=== PATIENT | male | born 1945 | race African-American/Black ===

== ENCOUNTER → 2017-05-25 | Day surgery (SDC) | payer MEDICARE, OTHER ==
[~2017-05-25] MED LIST: CELE200C PO; HYDROmorphone 2 MG/ML VIAL IV PRN; IV RINGERS,LACTATED 1000ML 1,000 ML IV SCH; LIDOCAINE 1% PF 2 ML VIAL. ID PRN; LIDOCAINE 2% PF Vial for OR 5 ML VIAL. ONE; LOSA1TAB2 PO; METF500T4 PO; MORPHINE SULFATE 2 MG/ML DISP.SYRIN. IV PRN; ONDANSETRON PF 4 MG/2 ML VIAL. IV PRN; PROCHLORPERAZINE 10 MG/2 ML VIAL. IV PRN; PROPOFOL 40 ML IV ONE; SITA100T PO; fentaNYL PF VIAL 100 MCG/2 ML VIAL IV PRN
[2017-05-25 10:18] VITALS: BP 133/85
--- NOTE | 2017-05-25 11:27 | CONS ---
DATE OF CONSULTATION: 05/25/2017 REFERRING PHYSICIAN: Dr. Miguel Coleman. HISTORY OF PRESENT ILLNESS: A 71-year-old -[place] male with past medical history significant for prostate cancer, colon polyps, hypertension, diabetes, seen for interval colonoscopy. Last exam was approximately 5 years ago. The patient did have some bleeding several years back, history of suppositories with resolution. Here today for surveillance exam. No change in bowel habits. No change in weight or appetite. PAST MEDICAL HISTORY: Osteoarthrosis, hypertension, diabetes, history of colonic polyps, history of prostate cancer. ALLERGIES: None. MEDICATIONS INCLUDE: Celebrex 200 mg daily, Hyzaar 50 mg daily, metformin 500 mg daily and Januvia 100 mg daily. SOCIAL HISTORY: He is a nonsmoker, nondrinker. FAMILY HISTORY: Significant for heart disease and lung cancer. REVIEW OF SYSTEMS: Per records. PAST SURGICAL HISTORY: Status post back surgery, hernia repair, lumbar disk surgery, radial keratotomy and TURP. PHYSICAL EXAMINATION: GENERAL: Reveals a well-nourished, well-developed male. VITAL SIGNS: Temperature is 98.5, pulse 65, respirations 18. HEENT: Normocephalic and atraumatic head. Pupils and extraocular movements are not tested. Sclerae anicteric. NECK: Supple. LUNGS: Clear. CARDIOVASCULAR: Reveals an S1, S2 without S3, S4 or appreciable murmur. ABDOMEN: Soft abdomen, normal bowel sounds, without appreciable hepatosplenomegaly. EXTREMITIES: Reveals no cyanosis, clubbing or edema. IMPRESSION: History of colonic polyps. Surveillance exam is recommended at this time. Risks, benefits of procedure including risk of perforation have been discussed. The patient is willing to proceed. Thank you Dr. Coleman for allowing us to consult and participate in the patient's care. ALEXANDRE EUGENE MD DR: DEBORAH/anastasiya JOB#: [id number] / [id number]
--- NOTE | 2017-05-28 15:13 | PATHOLOGY ---
PATHOLOGY REPORT * * * * * * * * FINAL DIAGNOSIS: Rectal polypectomy: - Polypoid segment of rectal mucosa showing focal dropout of rectal glands, edema and fibrosis of lamina propria, crypt architectural distortion, and mild acute and chronic inflammation. (JPM:charlie; 05/28/2017) COMMENT: Sections of the rectal polypectomy reveal a polypoid segment of rectal mucosa showing focal dropout of colonic glands, edema and fibrosis of lamina propria, crypt architectural distortion, and mild acute and chronic inflammation. The findings are suggestive of previous mucosal injury, perhaps a result of prolapse, ischemia, or prior radiation. There is no evidence of an active chronic destructive colitis/proctitis. There are no adenomatous changes. There is no evidence of dysplasia or malignancy. (JPM:charlie; 05/28/2017) REPORT ELECTRONICALLY SIGNED BY: Errol Hidalgo M.D. DATE/TIME: 05/28/2017 15:12 * * * * * * * * GROSS PATHOLOGY: Received in formalin labeled "Scottie Martinez, rectal polypectomy," is a 0.6 x 0.4 x 0.5 cm polypoid piece of chu soft tissue. The margin is inked and the tissue is sectioned perpendicular to the margin and submitted in its entirety in cassette A1. (TSD; 05/25/2017) INITIAL CPT CODE(S): A; 40564 Professional services performed [place] [address] Technical services performed by [facility] at [address] [place] [address]. SPECIMEN(S) RECEIVED: A.Rectal polypectomy CLINICAL HISTORY: History polyps; polyp PATIENT: SCOTTIE MARTINEZ /AGE: 310/29/1945 (Age: 71) PATIENT #: [id number] ALT CASE #: SPECIMEN COLLECTION DATE: 05/25/2017 SPECIMEN RECEIVED DATE: 05/25/2017 [facility] [place] [address] - PHONE: [phone] * * * END OF REPORT * * *
== END | disposition home or self-care (01) ==
LOC: ENDOS 08:50
PROVIDERS: ATTEND Internal Medicine Gastroenterology
DX: K62.1 Rectal polyp (principal); K64.0 First degree hemorrhoids; I10 Essential (primary) hypertension; K21.9 Gastro-esophageal reflux disease without esophagitis; M19.91 Primary osteoarthritis, unspecified site; E11.9 Type 2 diabetes mellitus without complications; Z86.39 Personal history of other endocrine, nutritional and metabolic disease; Z86.69 Personal history of other diseases of the nervous system and sense organs; Z87.39 Personal history of other diseases of the musculoskeletal system and connective tissue
CPT/HCPCS: 45385; J2704; 88305; J2001